=== PATIENT | female | born 1960 | race Caucasian/White ===

== ENCOUNTER 2018-01-01 19:22 | Emergency (ER) | payer BC, SELFPAY ==
[2018-01-01 19:28] VITALS: BP 151/81; PULSE 100; RESP 16; TEMP 36.4; O2SAT 100
[2018-01-01] MEDS: Sulfameth/Trimeth DS TAB 2 TAB PO (20:14)
[2018-01-01] MEDS: Cephalexin 500 MG CAP PO (20:14)
--- NOTE | 2018-01-01 20:14 | ED.GENADUL_ITS ---
Discharge Plan Disposition Patient Disposition: HOME Condition: Good Discharge Details Chief Complaint: Cellulitis Clinical Impression: Cellulitis of right breast Primary Care Provider: Denise Mejia ED Provider: Erlin Branch Home Meds and New Rx's Prescriptions: New sulfamethoxazole-trimethoprim [Bactrim DS] 800-160 mg tablet 2 tab PO BID 10 Days Qty: 40 RF: 0 cephalexin 500 mg capsule 500 mg PO QID 10 Days Qty: 40 RF: 0 Continue ibuprofen 800 MG tablet 800 mg PO TID PRNQty: 90 RF: 0 blood sugar diagnostic [Blood Glucose Test] 1 EACH strip 1 ea Miscellaneous DAILY Qty: 100 RF: 0 Nicotine [Nicoderm Cq] 1 EACH PATCH.TD24 1 ea Transdermal DAILY Qty: 1 RF: 0 glipizide 10 MG tablet extended release 24hr 10 mg PO DAILY Qty: 30 RF: 0 metformin 500 MG tablet 1,000 mg PO BID Qty: 120 RF: 5 pravastatin 20 MG tablet 20 mg PO DAILY Qty: 30 RF: 5 aspirin [Aspir-81] 81 MG tablet,delayed release (DR/EC) 81 mg PO DAILY Qty: 90 RF: 5 trazodone 50 MG tablet 50 mg PO as directed Qty: 180 RF: 0 Discharge Instructions Instructions: Cellulitis (ED) Additional Instructions: you should be contacted with an appointment with general surgery if you have severe pain or high fevers return to the emergency department Discharge Data Discharge Physician: Erlin Branch Medical Decision Making 57 yo female with hx of t2dm and hld though doesn't take her meds, comes in with redness of the right breast and had a boil per pt which started draining tonight. No fevers or severe pain. Has appearance of mastitis with small absecses that is already draining and no further fluctuance on exam so do not feel additional i and d going to be beneficial. NO fevers or crepitus and appears well so doubt sepsis or nec fasc at htis time. Will start on abx and have her f/u with general surgery this week for recheck and return precautions given Differential Diagnosis cellulitis, abscess, mastitis HPI General Mode of arrival: ambulatory . Date/Time Provider Initiated Documentation: 01/01/18 19:53 . Limitations to Documentation: no limitations . Information obtained by: patient . History of Present Illness 57 year old F presents to the emergency department with the chief complaint of right breast redness, described as moderate, with intensity rated at 4. Quality is described as burning, Patient started experiencing this day(s) (2) and it has been constant. No relieving factors improve symptom(s), No exacerbating factors reported . Patient notes no other symptoms.. Related Data Home Medications Medication Instructions Recorded Confirmed ibuprofen 800 mg PO TID PRN #90 tab-cap 11/17/16 01/01/18 blood sugar diagnostic [Blood #100 strip 11/23/16 Glucose Test] glipizide 10 mg PO DAILY #30 tab-cap 12/30/16 aspirin [Aspir-81] 81 mg PO DAILY #90 tab-cap 01/03/17 metformin 1,000 mg PO BID #120 tab-cap 17 01/01/18 pravastatin 20 mg PO DAILY #30 tab-cap 17 01/01/18 trazodone 50 mg PO as directed #180 tab-cap 03/29/17 01/01/18 cephalexin 500 mg PO QID 10 Days #40 cap 01/01/18 sulfamethoxazole-trimethoprim 2 tab PO BID 10 Days #40 tab 01/01/18 [Bactrim DS] Previous Rx's Medication Instructions Recorded glipizide 10 mg PO DAILY #30 tab-cap 12/30/16 aspirin [Aspir-81] 81 mg PO DAILY #90 tab-cap 01/03/17 metformin 1,000 mg PO BID #120 tab-cap 01/03/17 pravastatin 20 mg PO DAILY #30 tab-cap 01/03/17 trazodone 50 mg PO as directed #180 tab-cap 03/29/17 cephalexin 500 mg PO QID 10 Days #40 cap 01/01/18 sulfamethoxazole-trimethoprim 2 tab PO BID 10 Days #40 tab 01/01/18 [Bactrim DS] Allergies Allergy/AdvReac Type Severity Reaction Status Date / Time No Known Allergies Allergy Unverified 01/01/18 19:33 General Stated Complaint: Cellulitis ELY: 3 Review of Systems Review of Systems All systems reviewed & are unremarkable except as noted in HPI and below Constitutional Denies chills, Denies fever(s) and Denies weakness Eyes Denies loss of vision ENT Denies change in voice Cardiovascular Denies chest pain and Denies dyspnea Respiratory Denies dyspnea Gastrointestinal Denies abdominal pain, Denies nausea and Denies vomiting Genitourinary Denies dysuria Musculoskeletal Denies joint swelling Neurologic Denies loss of vision and Denies weakness Psychiatric Denies depression Endocrine Denies cold intolerance and Denies heat intolerance Allergic/Immunologic Reports urticaria PFSH Family History Mother Personal history of malignant neoplasm Father Essential hypertension Medical History Depression Diabetes mellitus, type 2 Social History Smoking/Tobacco Use Status: Current every day Surgical History Cholecystectomy Ligation of fallopian tube PROCEDURES Exam Const General: no acute distress Orientation: alert HENMT Head: normal to inspection Ears: external ears normal General nose exam: external nose normal Mouth: moist mucous membranes Eyes General: appearance normal, both eyes and all related structures Neck Neck: normal visual inspection Resp Effort & Inspection: normal respiratory effort and able to speak in complete sentences Cardio Rate: regular rate Skin General skin exam: other (3x4cm erythema of right breast at the 8 oclock position relative to the nipple, with drainge from the middle from open wound) Neuro General: alert and oriented x3 Extrem General: normal to inspection Psych Mental Status: mental status grossly normal Course Vital Signs Temperature 36.4 C L 01/01/18 19:28 Pulse 100 H 01/01/18 19:28 Respiratory Rate 16 01/01/18 19:28 Blood Pressure 151/81 H 01/01/18 19:28 Pulse Oximetry 100 01/01/18 19:28 Temperature 36.4 C L 01/01/18 19:28 Temperature Source Temporal Artery Scan 01/01/18 19:28 Pulse 100 H 01/01/18 19:28 Respiratory Rate 16 01/01/18 19:28 Respiratory Effort Non-Labored 01/01/18 19:29 Blood Pressure 151/81 H 01/01/18 19:28 Blood Pressure Position Sitting 01/01/18 19:28 Pulse Oximetry 100 01/01/18 19:28 Oxygen Delivery Method Room Air 01/01/18 19:28 Oxygen Flow Rate 0 01/01/18 19:28 Pain Level 5 01/01/18 19:28
[2018-01-01 20:19] VITALS: BP 145/80; PULSE 70; RESP 18; TEMP 36.8; O2SAT 99
--- NOTE | 2018-01-02 09:36 | CMPROGNOTE_ITS ---
Care Management Progress Note 01/02- Dr. Branch requested assistance with a PCP f/u this week for breast abscess. Referral faxed to [facility] this morning.
== END 2018-01-01 20:20 | disposition home or self-care (01) ==
LOC: ER 20:29
PROVIDERS: Emergency Provider Emergency Medicine; PCP Nurse Practitioner Gerontology
DX: L03.313 Cellulitis of chest wall (principal); E11.9 Type 2 diabetes mellitus without complications; Z79.84 Long term (current) use of oral hypoglycemic drugs
CPT/HCPCS: 99283

== ENCOUNTER 2024-07-19 10:04 | Emergency (ER) | payer BC, SELFPAY ==
[2024-07-19 10:14] VITALS: BP 150/68; PULSE 89; RESP 16; TEMP 36.4; O2SAT 98
[2024-07-19 10:24] VITALS: BP 150/68; PULSE 89; RESP 16; TEMP 36.4; O2SAT 98
--- NOTE | 2024-07-19 10:53 | ED.GENADUL_ITS ---
Discharge Plan Disposition Patient Disposition: Home Condition: Stable Discharge Details Clinical Impression: Left foot infection, Hyperglycemia, Hx of medication noncompliance Primary Care Provider: Unknown,Unknown ED Provider: Samir Rae Home Meds and New Rx's Prescriptions: New sulfamethoxazole-trimethoprim 800-160 mg tablet 1 tab PO BID Qty: 19 0RF cephalexin 500 mg capsule 500 mg PO QID Qty: 39 0RF Continued ibuprofen 800 MG tablet 800 mg PO TID PRNQty: 90 Nicotine [Nicoderm Cq] 1 EACH PATCH.TD24 1 ea Transdermal DAILY Qty: 1 0RF aspirin [Aspir-81] 81 MG tablet,delayed release (DR/EC) 81 mg PO DAILY Qty: 90 5RF trazodone 50 MG tablet 50 mg PO as directed Qty: 180 0RF Rx Instructions: Take one tab at night for 2 weeks then increase to 2 tabs at night till follow up 01/01/18-has not taken in 8 months but I'm going to start! LDP metformin 500 MG tablet 1,000 mg PO BID Qty: 120 5RF Rx Instructions: 01/01/18-has not taken in 8 months but I'm going to start! LDP glipizide 10 MG tablet extended release 24hr 10 mg PO DAILY Qty: 30 0RF Rx Instructions: 01/01/18-Did not know she was supposed to be taking this. LDP No Action (DME) Blood Glucose Test 1 EACH strip 1 ea Miscellaneous DAILY Qty: 100 Rx Instructions: FOR ONE TOUCH ULTRA TEST METER. PT DOES NOT USE INSULIN. DIAGNOSIS CODE e11.65 Discharge Instructions Instructions: Type 2 diabetes, Foot Care for Diabetics, Cellulitis (Skin Infection), Adult ED, Quitting Smoking ED Additional Instructions: Please follow-up with podiatry. Please follow-up with a primary care physician. Please take full course of antibiotics as prescribed. Please stop smoking. Please take diabetes medication as prescribed. Return to the emergency department immediately for any worsening or new concerning symptoms. Referrals: Mare Daly DPM [[facility] STAFF PHYSICIAN] - HPI General Mode of arrival: ambulatory . Date/Time Provider Initiated Documentation: 07/19/24 10:37 . Limitations to Documentation: no limitations . Information obtained by: patient and family . HPI Narrative: HISTORY OF PRESENT ILLNESS 64-year-old female with diabetes presents for evaluation of potential toe infection. Accompanied by daughter. Pain in toes for 2 months, attributed to pedicure incident causing infection. Initially treated with antibiotics at ER, condition improved, but pain recurred last month, now severe and disrupting sleep. No fevers. History of smoking, no drug use or COPD. Quit smoking for 4 months, resumed at reduced rate. Willing to quit smoking to save toes. No known antibiotic allergies. Similar issue with right big toe last year, resulted in ulcer and amputation. Without insurance for 3 months, not taking diabetes medications. Recently obtained insurance, seeking diabetes medication prescription. No primary care physician. Previously on Synjardy, effectively managed blood sugar levels. A1c decreased from 10 to 7.5 in 3 months. Reduced Synjardy dosage to once daily due to low blood sugar, maintained normal levels. Taking extra metformin and resumed atorvastatin, prescribed by previous physician in [place]. Related Data Home Medications ?Medication ?Instructions ?Recorded ?Confirmed ibuprofen 800 mg tablet 800 mg PO TID PRN #90 tab-caps 11/17/16 07/19/24 blood sugar diagnostic (Blood #100 strips 11/23/16 07/19/24 Glucose Test strips) aspirin 81 mg tablet,delayed 81 mg PO DAILY #90 tab-caps 01/03/17 07/19/24 release (Aspir-) trazodone 50 mg tablet 50 mg PO as directed #180 tab-caps 03/29/17 07/19/24 cephalexin 500 mg capsule 500 mg PO QID #39 caps 07/19/24 glipizide 10 mg tablet, extended 10 mg PO DAILY #30 tab-caps 07/19/24 release 24 hr metformin 500 mg tablet 1,000 mg (2 x 500 mg) PO BID #120 07/19/24 tab-caps sulfamethoxazole 800 1 tab PO BID #19 tabs 07/19/24 mg-trimethoprim 160 mg tablet Previous Rx's ?Medication ?Instructions ?Recorded aspirin 81 mg tablet,delayed 81 mg PO DAILY #90 tab-caps 01/03/17 release (Aspir-) trazodone 50 mg tablet 50 mg PO as directed #180 tab-caps 03/29/17 cephalexin 500 mg capsule 500 mg PO QID #39 caps 07/19/24 glipizide 10 mg tablet, extended 10 mg PO DAILY #30 tab-caps 07/19/24 release 24 hr metformin 500 mg tablet 1,000 mg (2 x 500 mg) PO BID #120 07/19/24 tab-caps sulfamethoxazole 800 1 tab PO BID #19 tabs 07/19/24 mg-trimethoprim 160 mg tablet Allergies Allergy/AdvReac Type Severity Reaction Status Date / Time No Known Allergies Allergy Unverified 07/19/24 10:16 General Stated Complaint: Cellulitis ELY: 3 Review of Systems All systems reviewed & are unremarkable except as noted in HPI and below Constitutional Constitutional: Denies fever(s) Exam Narrative Exam Narrative: PHYSICAL EXAM General Appearance: Normal. Vital signs: Within normal limits. HEENT: Within normal limits. Respiratory: Diminished breath sounds bilaterally posterior auscultation. Cardiovascular: Posterior tibialis pulse 1+ on bilateral Gastrointestinal: Heart and abdomen examined. Back, Musculoskeletal: Normal. Extremities: Black discoloration to all toes on left foot, first and third toes worse. Mild redness on forefoot. Right foot normal, history of rt great toe amputation. Skin: Warm and dry, no rash. Neurological: Normal. Course Vital Signs Vital signs: Vital Signs Temperature 36.4 C L 07/19/24 10:14 Pulse 89 07/19/24 10:14 Respiratory Rate 16 07/19/24 10:14 Blood Pressure 150/68 H 07/19/24 10:14 Pulse Oximetry 98 07/19/24 10:14 Temperature 36.4 C L 07/19/24 10:24 Pulse 89 07/19/24 10:24 Respiratory Rate 16 07/19/24 10:24 Blood Pressure 150/68 H 07/19/24 10:24 Pulse Oximetry 98 07/19/24 10:24 Pain Level 10 07/19/24 10:24 Medical Decision Making ASSESSMENT AND PLAN Initial Assessment: 64-year-old female with history of diabetes presenting with potential toe infection and pain. Afebrile. Redness, pain started post-pedicure incident, now black discoloration, mild redness on left foot's toes, especially first and third. Incomplete antibiotic course previously. Concern for hyperglycemia. Plan to check glucose and A1c today. Differential Diagnosis: - toe infection - Hyperglycemia ED Course: - Blood work to assess blood sugar: Glucose elevated at 272 with no anion gap acidosis. Hemoglobin A1c is elevated at 9.5. - Plan to prescribe Bactrim and Keflex. I will provide initial dosing here in the emergency department. - Plan to restart diabetes medications - Refer to primary care physician and podiatry for follow-up - I spoke with Dr. Leyva, on-call security controls assessor, discussed ED presentation course, she will be happy to see the patient in follow-up. She recommends x-rays be obtained today. - X-ray of the left foot was reviewed and interpreted by radiology: Soft tissue swelling. No visible bony erosion. Final Assessment: Patient presents with potential toe infection and diabetes mellitus. Blood work will determine the course of treatment, including antibiotics and diabetes medication management. Clinical Impression: - Toe infection - Diabetes mellitus, poorly controlled, noncompliant, hyperglycemia - Smoking cessation - Lack of health insurance affecting medication compliance Disposition: - Follow-Up: Refer to primary care physician for diabetes management and further care. - Follow-up podiatry for foot infection. Patient Education: Advised on the importance of completing antibiotic courses and the risks associated with continued smoking. Encouraged smoking cessation to improve health outcomes. MDM Components Evaluation: - Number of Differential Diagnoses or Management Options: Potential toe infection, diabetes mellitus - Amount and Complexity of Data Reviewed: Blood work - Risk of Complication and Morbidity or Mortality: High risk due to potential infection and uncontrolled diabetes This document was written with the assistance of USHA Martinez. The patient consented to its use. Lab Data Lab results reviewed: Yes I reviewed the patient's lab results. Labs: Laboratory Tests Range/Units 07/19/24 11:52 WBC (4.4-10.8) 10^3/uL 10.31 RBC (3.93-5.22) 10^6/uL 4.73 Hgb (11.2-15.7) g/dL 14.3 Hct (36.0-46.0) % 43.3 MCV (80-95) fL 92 MCH (27.0-33.0) pg 30.2 MCHC (32.0-36.0) % 33.0 RDW (11.7-14.6) % 13.6 Plt Count (130-400) 10^3/uL 278 MPV (8.0-11.0) fL 11.1 H Immature Gran % % 0.4 Neutrophils % % 75.1 Lymphocytes % % 17.8 Monocytes % % 4.8 Eosinophils % % 1.4 Basophils % % 0.5 Nucleated RBC % (0.0-0.3) % 0.0 Absolute Neutrophils (1.2-6.7) 10^3/uL 7.74 H Absolute Lymphocytes (1.2-3.4) 10^3/uL 1.84 Absolute Monocytes (0.1-0.8) 10^3/uL 0.50 Absolute Eosinophils (0.0-0.7) 10^3/uL 0.14 Absolute Basophils (0.0-0.2) 10^3/uL 0.05 Sodium (136-145) mmol/L 143 Potassium (3.5-5.1) mmol/L 3.9 Chloride (98-107) mmol/L 104 Carbon Dioxide (21.0-32.0) mmol/L 32.8 H Anion Gap (3-11) mmol/L 6.2 BUN (7-18) mg/dL 14 Creatinine (0.55-1.02) mg/dL 0.9 Est GFR (CKD-EPI 2020) (mL/min/1.73m2) 71.39 Glucose (74-106) mg/dL 272 H Hemoglobin A1c (<5.7) % 9.5 H Calcium (8.5-10.1) mg/dL 8.9 Total Bilirubin (0.2-1.0) mg/dL 1.2 H AST (15-37) U/L 21 ALT (14-59) U/L 29 Alkaline Phosphatase (46-116) U/L 103 Total Protein (6.4-8.2) g/dL 7.6 Albumin (3.4-5.0) g/dL 3.8 Quality:SDOH Health Related Social Needs: No Data to Display PFSH All Active Problems (Updated 07/19/24 @ 13:16 by Samir Rae MD) Hx of medication noncompliance (Acute) Hyperglycemia (Acute) Left foot infection (Acute) Type II diabetes mellitus, uncontrolled (Acute) Postmenopausal bleeding (Acute 06/05/12) Neck pain (Acute 10/25/14) +MRI c spine: C5-C6-C7 central disc herniation/osteophyte causing cord co mpression. Consult neuroSurg: suggest : anterior cervical discectomy with alograft fusion and anterior arthrodesis Mood disorder (Acute 11/17/16) Family history of neoplasm of female genital organ (Acute 06/05/12) Medical History (Updated 07/19/24 @ 13:16 by Samir Rae MD) Depression Diabetes mellitus, type 2 Surgical History (Updated 01/04/18 @ 14:36 by [place]) Ligation of fallopian tube PROCEDURES NEGATIVE STRESS TEST 01/19/17 Cholecystectomy Family History Mother Personal history of malignant neoplasm Endometrial CA , Lung CA Father Essential hypertension Social History (Updated 01/19/18 @ 12:09 by Latrice Weathers) Smoking/Tobacco Use Status: Former Tobacco Use Quit Date: 12/18/16 Smoking risk assessment performed?: Yes Drug use: Never Substance use type: does not use Do you feel safe in your relationship?: Yes
--- NOTE | 2024-07-19 10:58 | ED.GENADUL_ITS ---
Discharge Plan Discharge Details Chief Complaint: Cellulitis Primary Care Provider: Unknown,Unknown ED Provider: Samir Rae Home Meds and New Rx's Prescriptions: No Action ibuprofen 800 MG tablet 800 mg PO TID PRNQty: 90 (DME) Blood Glucose Test 1 EACH strip 1 ea Miscellaneous DAILY Qty: 100 Rx Instructions: FOR ONE TOUCH ULTRA TEST METER. PT DOES NOT USE INSULIN. DIAGNOSIS CODE e11.65 Nicotine [Nicoderm Cq] 1 EACH PATCH.TD24 1 ea Transdermal DAILY Qty: 1 0RF glipizide 10 MG tablet extended release 24hr 10 mg PO DAILY Qty: 30 0RF Patient Comments: 01/14/[id number] taking--to check with pcp tosee if she should be taking Rx Instructions: 01/01/18-Did not know she was supposed to be taking this. LDP metformin 500 MG tablet 1,000 mg PO BID Qty: 120 5RF Rx Instructions: 01/01/18-has not taken in 8 months but I'm going to start! LDP aspirin [Aspir-81] 81 MG tablet,delayed release (DR/EC) 81 mg PO DAILY Qty: 90 5RF trazodone 50 MG tablet 50 mg PO as directed Qty: 180 0RF Rx Instructions: Take one tab at night for 2 weeks then increase to 2 tabs at night till follow up 01/01/18-has not taken in 8 months but I'm going to start! LDP HPI General Date/Time Provider Initiated Documentation: 07/19/24 10:37 . HPI Narrative: [] is a [] year old [] who presents to the emergency department today for evaluation of []. Past medical history is significant for [] Physical exam D/dx includes but is not limited to: I independently interpreted the following tests: While in the emergency department, [] received Reviewed discharge instructions with patient, including symptomatic management and red flags indicating need for return to emergency care Related Data Home Medications ?Medication ?Instructions ?Recorded ?Confirmed ibuprofen 800 mg tablet 800 mg PO TID PRN #90 tab-caps 11/17/16 07/19/24 blood sugar diagnostic (Blood #100 strips 11/23/16 07/19/24 Glucose Test strips) glipizide 10 mg tablet, extended 10 mg PO DAILY #30 tab-caps 12/30/16 07/19/24 release 24 hr aspirin 81 mg tablet,delayed 81 mg PO DAILY #90 tab-caps 01/03/17 07/19/24 release (Aspir-) metformin 500 mg tablet 1,000 mg (2 x 500 mg) PO BID #120 01/03/17 07/19/24 tab-caps trazodone 50 mg tablet 50 mg PO as directed #180 tab-caps 03/29/17 07/19/24 Previous Rx's ?Medication ?Instructions ?Recorded glipizide 10 mg tablet, extended 10 mg PO DAILY #30 tab-caps 12/30/16 release 24 hr aspirin 81 mg tablet,delayed 81 mg PO DAILY #90 tab-caps 01/03/17 release (Aspir-) metformin 500 mg tablet 1,000 mg (2 x 500 mg) PO BID #120 01/03/17 tab-caps trazodone 50 mg tablet 50 mg PO as directed #180 tab-caps 03/29/17 Allergies Allergy/AdvReac Type Severity Reaction Status Date / Time No Known Allergies Allergy Unverified 07/19/24 10:16 General Stated Complaint: Cellulitis ELY: 3 Course Vital Signs Vital signs: Vital Signs Temperature 36.4 C L 07/19/24 10:14 Pulse 89 07/19/24 10:14 Respiratory Rate 16 07/19/24 10:14 Blood Pressure 150/68 H 07/19/24 10:14 Pulse Oximetry 98 07/19/24 10:14 Temperature 36.4 C L 07/19/24 10:24 Pulse 89 07/19/24 10:24 Respiratory Rate 16 07/19/24 10:24 Blood Pressure 150/68 H 07/19/24 10:24 Pulse Oximetry 98 07/19/24 10:24 Pain Level 10 07/19/24 10:24 Medical Decision Making Quality:SDOH Health Related Social Needs: No Data to Display PFSH All Active Problems (Updated 01/16/18 @ 11:50 by Tho Castillo) Type II diabetes mellitus, uncontrolled (Acute) Postmenopausal bleeding (Acute 06/05/12) Neck pain (Acute 10/25/14) +MRI c spine: C5-C6-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 Consult neuroSurg: suggest : anterior cervical discectomy with alograft fusion and anterior arthrodesis Mood disorder (Acute 11/17/16) Family history of neoplasm of female genital organ (Acute 06/05/12) Medical History (Updated 01/16/18 @ 11:50 by Tho Castillo) Depression Diabetes mellitus, type 2 Surgical History (Updated 01/04/18 @ 14:36 by Jaco Solarsi) Ligation of fallopian tube PROCEDURES NEGATIVE STRESS TEST 01/19/17 Cholecystectomy Family History Mother Personal history of malignant neoplasm Endometrial CA , Lung CA Father Essential hypertension Social History (Updated 01/19/18 @ 12:09 by Latrice Weathers) Smoking/Tobacco Use Status: Former Tobacco Use Quit Date: 12/18/16 Smoking risk assessment performed?: Yes Drug use: Never Substance use type: does not use Do you feel safe in your relationship?: Yes
[2024-07-19 11:43] VITALS: BP 173/51; PULSE 85; RESP 18; O2SAT 95
[2024-07-19 12:03] LABS: Abs Immature Grans 0.04 10^3/uL (0.0-0.06); Absolute Basophil Count 0.05 10^3/uL (0.0-0.2); Absolute Eosinophil Count 0.14 10^3/uL (0.0-0.7); Absolute Lymphocyte Count 1.84 10^3/uL (1.2-3.4); Absolute Neutrophil Count 7.74 10^3/uL (1.2-6.7); Basophils % 0.5 %; Eosinophils % 1.4 %; HCT 43.3 % (36.0-46.0); HGB 14.3 g/dL (11.2-15.7); Immature Grans % 0.4 %; Lymphocytes % 17.8 %; MCH 30.2 pg (27.0-33.0); MCV 92 fL (80-95); MPV 11.1 fL (8.0-11.0); Monocytes % 4.8 %; Neutrophils % 75.1 %; Platelet Count 278 10^3/uL (130-400); RBC 4.73 10^6/uL (3.93-5.22); RDW 13.6 % (11.7-14.6); RDW-SD 46.2 fL; WBC 10.31 10^3/uL (4.4-10.8)
[2024-07-19 12:25] LABS: Hemoglobin A1C 9.5 % (<5.7)
[2024-07-19 12:30] LABS: ALT 29 U/L (14-59); AST 21 U/L (15-37); Albumin 3.8 g/dL (3.4-5.0); Alkaline Phosphatase 103 U/L (46-116); Anion Gap 6.2 mmol/L (3-11); BUN 14 mg/dL (7-18); Bilirubin, Total 1.2 mg/dL (0.2-1.0); CO2 32.8 mmol/L (21.0-32.0); CREATININE 0.9 mg/dL (0.55-1.02); Calcium 8.9 mg/dL (8.5-10.1); Chloride 104 mmol/L (98-107); Estimated GFR 71.39 (mL/min/1.73m2); Glucose 272 mg/dL (74-106); Potassium 3.9 mmol/L (3.5-5.1); Sodium 143 mmol/L (136-145); Total Protein 7.6 g/dL (6.4-8.2)
--- NOTE | 2024-07-19 13:15 | DI.RAD_ITS ---
Exam(s) XR FOOT LT COMPLETE EXAM: XR FOOT LT COMPLETE CLINICAL HISTORY: infection, pain. TECHNIQUE: 2D digital imaging was performed. Three views. COMPARISON: No exams were available for comparison FINDINGS: BONES: No acute fracture is present. No bony destructive lesion is seen. Heel spurs. JOINTS: No dislocation present. Mild degenerative changes. SOFT TISSUE: Lateral soft tissue swelling. No abnormal gas collection or foreign body. IMPRESSION: Soft tissue swelling. No visible bony erosion. DATA REPOSITORY: RADIATION DOSE DELIVERED:
[2024-07-19] MEDS: Ketorolac 15 MG/ML VIAL IVP (13:36)
[2024-07-19] MEDS: Normal Saline Flush 10 ML SYR IVP (13:37)
[2024-07-19] MEDS: Cephalexin 500 MG CAP PO (13:37)
[2024-07-19] MEDS: Sulfameth/Trimeth DS TAB 1 TAB PO (13:37)
[2024-07-19] MEDS: Acetaminophen 325 MG TAB 650 MG PO (13:37)
[2024-07-19 13:45] VITALS: BP 165/45; PULSE 86; O2SAT 95
[2024-07-19 15:06] VITALS: BP 162/77; PULSE 88; RESP 18; O2SAT 98
== END 2024-07-19 15:06 | disposition home or self-care (01) ==
PROVIDERS: Emergency Provider Student in an Organized Health Care Education/Training Program
DX: E11.65 Type 2 diabetes mellitus with hyperglycemia (principal); L08.89 Other specified local infections of the skin and subcutaneous tissue; F32.A Depression, unspecified; Z89.411 Acquired absence of right great toe; Z79.82 Long term (current) use of aspirin; Z79.84 Long term (current) use of oral hypoglycemic drugs; Z87.891 Personal history of nicotine dependence
CPT/HCPCS: 36415; 80053; 96374; 99284; 73630; 83036; 85025; J1885

== ENCOUNTER 2024-10-01 07:14 | Emergency (ER) | payer BC, SELFPAY ==
[2024-10-01 07:37] VITALS: BP 125/42; PULSE 78; RESP 15; TEMP 36.1; O2SAT 96
--- NOTE | 2024-10-01 07:43 | W.ED.GENAD ---
Discharge Plan Disposition Patient Disposition: Home Discharge Details Clinical Impression: Closed fracture of proximal end of right humerus, Hematoma of right parietal scalp Primary Care Provider: Juan Zhang ED Provider: Osei Robert [place] Meds and New Rx's Prescriptions: New ondansetron 4 mg tablet,disintegrating 4 mg PO BID 5 Days Qty: 10 0RF oxycodone 5 mg tablet 5 mg PO Q8H PRNQty: 9 0RF Continued trazodone 50 mg tablet 50 mg PO as directed Qty: 180 0RF Rx Instructions: Take one tab at night for 2 weeks then increase to 2 tabs at night till follow up 01/01/18-has not taken in 8 months but I'm going to start! LDP (DME) blood-glucose meter [Contour Next EZ Meter] Kit See Rx Instructions .Route Qty: 1 3RF Rx Instructions: Daily (DME) Contour Next Test Strips Strip See Rx Instructions .Route Qty: 70 3RF Rx Instructions: daily (DME) lancets [Accu-Chek Softclix Lancets] Misc See Rx Instructions .Route Qty: 100 3RF Rx Instructions: Daily ketoconazole 2 % cream 1 applic topical DAILY Qty: 120 6RF Rx Instructions: Apply to toenails once daily acetaminophen 650 mg/20.3 mL solution 650 mg PO Q6H (DME) Blood Glucose Test 1 EACH strip 1 ea Miscellaneous DAILY Qty: 100 Rx Instructions: FOR ONE TOUCH ULTRA TEST METER. PT DOES NOT USE INSULIN. DIAGNOSIS CODE e11.65 Nicotine [Nicoderm Cq] 1 EACH PATCH.TD24 1 ea Transdermal DAILY Qty: 1 0RF glipizide 10 mg tablet extended release 24hr 10 mg PO DAILY Qty: 90 3RF aspirin 81 mg tablet,delayed release (DR/EC) 81 mg PO DAILY Qty: 90 5RF Ozempic 0.25 mg or 0.5 mg (2 mg/3 mL) pen injector 0.5 mg subcut QWEEK Qty: 3 0RF Rx Instructions: for 4 weeks atorvastatin 40 mg tablet 40 mg PO QPM Qty: 90 3RF clopidogrel [Plavix] 75 mg tablet 75 mg PO DAILY Qty: 90 3RF Jardiance 10 mg tablet 10 mg PO DAILY Qty: 90 3RF gabapentin 100 mg capsule 100 mg PO QHS Qty: 90 3RF metformin 500 MG tablet 1,000 mg PO BID Qty: 120 5RF Rx Instructions: 01/01/18-has not taken in 8 months but I'm going to start! LDP Discharge Instructions Instructions: Upper Arm Fracture Additional Instructions: You were seen in the emergency department for your arm pain. You are x-ray showed you have a fracture of your proximal humerus which will likely require operative repair. Please call orthopedic team for follow-up. As we discussed, please return to the emergency department if you develop any numbness tingling in the right hand if you develop any color changes in your head or if you have any other concerns. Your CAT scan showed no sign of any bleeding in your head. For your pain please take medications as follows: 1. Take acetaminophen (Tylenol), 1,000 mg (two 500 mg tabs) every 6 hours Please take these additional medications for pain. Please do not drive or drink alcohol particularly stronger medications. Referrals: [facility] [Provider Group] HPI General Date/Time Provider Initiated Documentation: 10/01/24 07:34. HPI Narrative: MDM Primary survey intact. Reassuring shock index. On secondary survey patient has tenderness to her proximal right nondominant humerus concerning for the possibility of fracture for which patient will undergo plain films. Given fall will obtain two-view chest x-ray. I am not suspicious for shoulder dislocation based on exam. No midline cervical spinal tenderness to suggest cervical spinal fracture. Patient does have right-sided temporal tenderness. Given clopidogrel use will obtain CT head. Given distracting injury will also obtain CT cervical spine. No preceding chest pain to suggest ACS. No shortness of breath to suggest PE. No preceding syncope to suggest GI bleed. Given the syncope my suspicion for dysrhythmia was low so I did not feel patient required a twelve-lead ECG. 1:[address] Booker who reviewed patient's x-ray and advised scan of her right upper extremity as she will CT require operative repair. I ordered labs in the event the patient required hospitalization. Her labs are reassuring. I discharged her with outpatient orthopedic follow-up per recommendation from Dr. Booker. Patient has a sling will be nonweightbearing on her right upper extremity. She does have nausea with opiates however given her clopidogrel use cannot provide her with ibuprofen. Will write her for short course of opiates and provide her with ondansetron as needed for pain. We discussed that she should return if she developed any color changes in her hand any weakness or any unmanageable pain.Patient only had 1 opiate prescription in her PDMP. Her repeat CT scan was reassuring against any intracranial hemorrhage. HPI This is a patient with a history of toe amputation presenting with a fall. The patient fell down the stairs approximately 45 minutes prior to arrival. The fall occurred due to poor visibility and instability related to the loss of her big toe on her right foot. She was descending a flight of stairs with four steps remaining when she fell, landing on her right shoulder. The patient is left-handed and reports no head injury or loss of consciousness. However, she experienced immediate vomiting post-fall. She is not experiencing shortness of breath or abdominal pain. The pain, initially localized to her shoulder, has since radiated to her back and neck, and she reports it is progressively worsening. The patient is currently on blood thinners and aspirin. Exam General: Well-appearing in no acute distress speaking in complete sentences. Head: Normocephalic, atraumatic. Eye: Extraocular eye movements intact. No conjunctival injection. No scleral icterus. Ear, nose, mouth, throat: Grossly normal inspection. Normal voice, handling secretions normally. No hemotympanum bilaterally. Neck: Trachea midline. No midline cervical spinal tenderness Cardiovascular: Well-perfused distal extremities. Regular rate rhythm Respiratory: Nonlabored respiration. Clear breath sounds bilaterally. Gastrointestinal: Nondistended abdomen. Musculoskeletal: Proximal right arm tenderness. No obvious shoulder dislocation. Patient is healing skin tear to right hand which she reports predates injury. Right hand warm well-perfused intact sensation motor function across radial, median, ulnar nerve distributions. 2+ right radial pulse. Cap refill 2 seconds in right fingertips. Left upper extremity nontender full range of motion Bilateral lower extremities nontender range of motion intact. Skin: Normal for age and race, grossly normal temperature and turgor. No acute rash. Neurologic: Alert and appropriate, no apparent acute deficits. GCS 15. Psychiatric: Mood and manner are appropriate. Grooming and personal hygiene are appropriate. Related Data Home Medications ?Medication ?Instructions ?Recorded ?Confirmed blood sugar diagnostic (Blood #100 strips 11/23/16 10/01/24 Glucose Test strips) metformin 500 mg tablet 1,000 mg (2 x 500 mg) PO BID #120 07/19/24 10/01/24 tab-caps blood sugar diagnostic (Contour #70 ea 07/23/24 10/01/24 Next Test Strips) blood-glucose meter (Contour Next #1 ea 07/23/24 10/01/24 EZ Meter kit) lancets (Accu-Chek Softclix #100 ea 07/23/24 10/01/24 Lancets) trazodone 50 mg tablet 50 mg PO as directed #180 tab-caps 07/23/24 10/01/24 ketoconazole 2 % topical cream 1 applic topical DAILY #120 grams 07/24/24 07/30/24 acetaminophen 650 mg/20.3 mL oral 650 mg PO Q6H 07/26/24 07/30/24 solution glipizide 10 mg tablet, extended 10 mg PO DAILY #90 tab-caps 08/23/24 10/01/24 release 24 hr aspirin 81 mg tablet,delayed 81 mg PO DAILY #90 tab-caps 09/25/24 10/01/24 release semaglutide 0.25 mg or 0.5 mg (2 0.5 mg (0.736 mL) subcut QWEEK #3 09/25/24 10/01/24 mg/3 mL) subcutaneous pen injector mL (Ozempic) atorvastatin 40 mg tablet 40 mg PO QPM #90 tabs 09/26/24 10/01/24 clopidogrel 75 mg tablet (Plavix) 75 mg PO DAILY #90 tabs 09/26/24 10/01/24 empagliflozin 10 mg tablet 10 mg PO DAILY #90 tabs 09/26/24 10/01/24 (Jardiance) gabapentin 100 mg capsule 100 mg PO QHS #90 caps 09/28/24 10/01/24 ondansetron 4 mg disintegrating 4 mg PO BID 5 days #10 tabs 10/01/24 tablet oxycodone 5 mg tablet 5 mg PO Q8H PRN #9 tabs 10/01/24 Previous Rx's ?Medication ?Instructions ?Recorded metformin 500 mg tablet 1,000 mg (2 x 500 mg) PO BID #120 07/19/24 tab-caps blood sugar diagnostic (Contour #70 ea 07/23/24 Next Test Strips) blood-glucose meter (Contour Next #1 ea 07/23/24 EZ Meter kit) lancets (Accu-Chek Softclix #100 ea 07/23/24 Lancets) trazodone 50 mg tablet 50 mg PO as directed #180 tab-caps 07/23/24 ketoconazole 2 % topical cream 1 applic topical DAILY #120 grams 07/24/24 glipizide 10 mg tablet, extended 10 mg PO DAILY #90 tab-caps 08/23/24 release 24 hr aspirin 81 mg tablet,delayed 81 mg PO DAILY #90 tab-caps 09/25/24 release semaglutide 0.25 mg or 0.5 mg (2 0.5 mg (0.736 mL) subcut QWEEK #3 09/25/24 mg/3 mL) subcutaneous pen injector mL (Ozempic) atorvastatin 40 mg tablet 40 mg PO QPM #90 tabs 09/26/24 clopidogrel 75 mg tablet (Plavix) 75 mg PO DAILY #90 tabs 09/26/24 empagliflozin 10 mg tablet 10 mg PO DAILY #90 tabs 09/26/24 (Jardiance) gabapentin 100 mg capsule 100 mg PO QHS #90 caps 09/28/24 ondansetron 4 mg disintegrating 4 mg PO BID 5 days #10 tabs 10/01/24 tablet oxycodone 5 mg tablet 5 mg PO Q8H PRN #9 tabs 10/01/24 Allergies Allergy/AdvReac Type Severity Reaction Status Date / Time oxycodone AdvReac Severe Nausea Verified 10/01/24 07:41 General Stated Complaint: Orthopedic ELY: 3 Course Vital Signs Vital signs: Vital Signs Temperature 36.1 C L 10/01/24 07:37 Pulse 78 10/01/24 07:37 Respiratory Rate 15 10/01/24 07:37 Blood Pressure 125/42 L 10/01/24 07:37 Pulse Oximetry 96 10/01/24 07:37 Temperature 36.1 C L 10/01/24 07:37 Temperature Source Tympanic 10/01/24 07:37 Pulse 78 10/01/24 07:37 Respiratory Rate 15 10/01/24 07:37 Blood Pressure 125/42 L 10/01/24 07:37 Blood Pressure Position Sitting 10/01/24 07:37 Pulse Oximetry 96 10/01/24 07:37 Oxygen Delivery Method Room Air 10/01/24 07:37 Oxygen Flow Rate 0 10/01/24 07:37 Pain Level 10 10/01/24 07:37 PFSH All Active Problems (Updated 10/01/24 @ 13:49 by Osei oRbert MD) Hematoma of right parietal scalp (Acute) Closed fracture of proximal end of right humerus (Acute) Intermittent claudication due to atherosclerosis of artery of extremity (Acute) Rest pain of both lower extremities due to atherosclerosis (Acute) Blue toe syndrome of left lower extremity (Acute) Right great toe amputee (Acute) PVD (peripheral vascular disease) (Chronic) PAD (peripheral artery disease) (Acute) Type II diabetes mellitus, uncontrolled (Acute) Postmenopausal bleeding (Acute 06/05/12) Neck pain (Acute 10/25/14) +MRI c spine: C5-C6-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 Consult neuroSurg: suggest : anterior cervical discectomy with alograft fusion and anterior arthrodesis Mood disorder (Acute 11/17/16) Family history of neoplasm of female genital organ (Acute 06/05/12) Medical History (Updated 10/01/24 @ 13:49 by Osei Robert MD) Depression Diabetes mellitus, type 2 Surgical History Ligation of fallopian tube PROCEDURES NEGATIVE STRESS TEST 01/19/17 Cholecystectomy Family History Mother Personal history of malignant neoplasm Endometrial CA , Lung CA Father Essential hypertension Social History Smoking/Tobacco Use Status: Former Tobacco Use Quit Date: 12/18/16 Smoking risk assessment performed?: Yes Alcohol Intake: never Drug use: Never Substance use type: does not use Do you feel safe in your relationship?: Yes
--- NOTE | 2024-10-01 07:45 | DI.RAD_ITS ---
Exam(s) XR HUMERUS RT XR SHOULDER RT COMPLETE 2+V EXAM: XR SHOULDER RT COMPLETE 2+V and XR humerus RT CLINICAL HISTORY: Right shoulder pain. TECHNIQUE: 2D digital imaging was performed of the right humerus and shoulder. Six images were obtained. AP, lateral, Grashey and Y views were obtained. COMPARISON: CR XR HUMERUS RT from 10/01/2024 FINDINGS: BONES: There is an acute comminuted fracture involving the proximal humerus. The fracture involves the surgical neck and the greater tuberosity. No bony destructive lesion is seen. There is anterior cervical disc fusion in the lower cervical spine. JOINTS: There is mild inferior subluxation of the humeral head relative to the glenoid. Degenerative changes are seen at the acromioclavicular joint. SOFT TISSUE: Normal. IMPRESSION: Comminuted mildly displaced fracture involving the proximal right humerus. Mild inferior subluxation of the humeral head relative to the glenoid. DATA REPOSITORY: RADIATION DOSE DELIVERED:
--- NOTE | 2024-10-01 07:45 | DI.RAD_ITS ---
Exam(s) XR CHEST 2V PA LATERAL EXAM: XR CHEST 2V PA LATERAL CLINICAL HISTORY: History of falling TECHNIQUE: 2D digital imaging was performed of the chest. Two images were obtained. PA and lateral views were obtained. COMPARISON: CR CHEST 2 VIEWS PA,LAT from 11/21/2014 FINDINGS: MEDIASTINUM: Normal. HEART: Normal. PULMONARY VASCULATURE: Normal. LUNGS: There is a small infiltrate in the right lung base above the diaphragm. There is atelectasis or scarring in the left mid lung. PLEURAL SPACE: No pleural effusion or pneumothorax. BONE:Within normal limits for the patient's age. The right humeral head fractures described on the x-ray of the shoulder and humerus. There is anterior cervical fusion in the lower cervical spine. OTHER FINDINGS:Normal. IMPRESSION: 1. Right basilar infiltrate. This may represent atelectasis or pneumonia. Please correlate clinically. 2. The right humeral fracture is described on the x-ray of the right shoulder and humerus. DATA REPOSITORY: RADIATION DOSE DELIVERED:
--- NOTE | 2024-10-01 07:45 | DI.CT_ITS ---
Exam(s) CT HEAD CERVICAL SPINE WO EXAM: CT HEAD CERVICAL SPINE WO CLINICAL HISTORY: Head strike right-sided pain distracting injury. TECHNIQUE: Imaging Protocol: Axial computed tomography images with coronal and sagittal reformatted images were created and reviewed COMPARISON: No exams were available for comparison FINDINGS: CT Head: Ventricles and Extra axial spaces: Normal in size and morphology for the patient's age. Hemorrhage: There are 2 questionable areas of hyper density in the subarachnoid space (series 4, image 25 in the right parietal lobe) and (series 4, image 17 in the left parietal lobe). This may be artifactual. Cerebral parenchyma: There are areas of decreased attenuation in the white matter consistent with chronic microvascular ischemic disease. There is no evidence of an acute territorial infarct or acute mass effect. Midline shift: None. Brainstem/Cerebellum: Normal. Calvarium: Normal. Visualized Paranasal sinuses/Mastoids: Clear. Soft Tissues: There is a small right scalp hematoma overlying the right parietal bone. CT Cervical Spine: Bones: No acute fracture or subluxation. Anterior cervical fusion at C5 through C7. Age-appropriate degenerative changes are present. Soft Tissues: Unremarkable. Lung Apices: Clear. IMPRESSION: 1. Two questionable areas of hyperdensity in each of the parietal lobes. This may represent artifact versus small subarachnoid hemorrhages. A follow-up examination in 3-4 hours is recommended for re-evaluation. 2. Right parietal scalp hematoma. 3. No acute fracture or subluxation in the cervical spine. 4. Findings were discussed with Dr. Robert at 9:15 a.m. on 10/01/2024. RADIATION DOSE DELIVERED: 1,201.89mGy.cm Total DLP DATA REPOSITORY: All CT scans at this facility are submitted to the National Radiology Data Registry (NRDR) Dose Index Registry (DIR) with the [employer] ([employer]). RADIATION OPTIMIZATION: All CT scans at this facility use at least one of these dose optimization techniques: automated exposure control; mA and/or kV adjustment per patient size (includes targeted exams where dose is matched to clinical indication); or iterative reconstruction.
[2024-10-01] MEDS: Acetaminophen 500 MG TAB 1000 MG PO (10:10)
--- NOTE | 2024-10-01 11:00 | DI.CT_ITS ---
Exam(s) CT HEAD WO EXAM: CT HEAD WO CLINICAL HISTORY: ? Bleed. TECHNIQUE: Imaging Protocol: Axial computed tomography images with coronal and sagittal reformatted images were created and reviewed COMPARISON: CT CT HEAD CERVICAL SPINE WO from 10/01/2024 FINDINGS: Ventricles and Extra axial spaces: Normal in size and morphology for the patient's age. Hemorrhage: None. Cerebral parenchyma: There are areas of decreased attenuation in the white matter consistent with chronic microvascular ischemic disease. No acute mass effect is identified. No findings to suggest an acute territorial infarct are seen. Midline shift: None. Brainstem/Cerebellum: Normal. Calvarium: Normal. Visualized Paranasal sinuses/Mastoids: Clear. Soft Tissues: There is again seen a right scalp hematoma overlying the right parietal bone. IMPRESSION: 1. No acute intracranial process. 2. Small scalp hematoma overlying the right parietal bone. RADIATION DOSE DELIVERED: 874.93mGy.cm Total DLP DATA REPOSITORY: All CT scans at this facility are submitted to the National Radiology Data Registry (NRDR) Dose Index Registry (DIR) with the [employer] ([employer]). RADIATION OPTIMIZATION: All CT scans at this facility use at least one of these dose optimization techniques: automated exposure control; mA and/or kV adjustment per patient size (includes targeted exams where dose is matched to clinical indication); or iterative reconstruction.
--- NOTE | 2024-10-01 11:00 | DI.CT_ITS ---
Exam(s) CT UPPER EXTREMITY RT WO EXAM: CT UPPER EXTREMITY RT WO CLINICAL HISTORY: Right proximal humerus fracture. TECHNIQUE: Imaging Protocol: Axial computed tomography images with coronal and sagittal reformatted images were created and reviewed. COMPARISON: CR XR HUMERUS RT from 10/01/2024 CR XR SHOULDER RT COMPLETE 2+V from 10/01/2024 FINDINGS: Bones: There is an acute comminuted fracture of the proximal humerus. There is a comminuted displaced component of the greater tuberosity. There is mild impaction of the fracture medially. The humeral head appears seated within the glenoid fossa. There are degenerative changes seen at the acromioclavicular and glenohumeral joints. No cellulitic or osteomyelitic changes are identified. No lytic or sclerotic lesions are identified. Soft Tissues: There is infiltration seen in the soft tissues around the fracture. The thyroid gland is enlarged, left greater than right. Calcifications are seen within the thyroid gland. No large thyroid nodules are seen. The visualized lungs are clear. IMPRESSION: Comminuted, displaced and impacted fracture involving the proximal humerus as described. RADIATION DOSE DELIVERED: 559.58mGy.cm Total DLP 559.58mGy.cm Total DLP DATA REPOSITORY: All CT scans at this facility are submitted to the National Radiology Data Registry (NRDR) Dose Index Registry (DIR) with the [employer] (ACR). RADIATION OPTIMIZATION: All CT scans at this facility use at least one of these dose optimization techniques: automated exposure control; mA and/or kV adjustment per patient size (includes targeted exams where dose is matched to clinical indication); or iterative reconstruction.
[2024-10-01 12:04] LABS: Abs Immature Grans 0.10 10^3/uL (0.0-0.06); HCT 44.4 % (36.0-46.0); HGB 14.8 g/dL (11.2-15.7); Immature Grans % 0.5 %; MCH 30.5 pg (27.0-33.0); MCHC 33.3 % (32.0-36.0); MCV 91 fL (80-95); MPV 11.3 fL (8.0-11.0); Platelet Count 316 10^3/uL (130-400); RBC 4.86 10^6/uL (3.93-5.22); RDW 14.2 % (11.7-14.6); RDW-SD 48.0 fL; WBC 21.24 10^3/uL (4.4-10.8)
[2024-10-01] MEDS: Normal Saline 500 ML IV (12:25)
[2024-10-01] MEDS: Ondansetron 4 MG/2 ML VIAL IVP (12:25)
[2024-10-01] MEDS: MORPHine 4 MG/ML SYR IVP (12:25)
[2024-10-01 12:37] LABS: Anion Gap 10.7 mmol/L (3-11); BUN 18 mg/dL (7-18); CO2 26.3 mmol/L (21.0-32.0); Calcium 9.4 mg/dL (8.5-10.1); Chloride 102 mmol/L (98-107); Estimated GFR 82.23 (mL/min/1.73m2); Glucose 173 mg/dL (74-106); Potassium 4.1 mmol/L (3.5-5.1); Sodium 139 mmol/L (136-145)
[2024-10-01] MEDS: MORPHine 4 MG/ML SYR (13:59)
== END 2024-10-01 14:01 | disposition home or self-care (01) ==
PROVIDERS: Emergency Provider Emergency Medicine; PCP Nurse Practitioner Family
DX: S42.201A Unspecified fracture of upper end of right humerus, initial encounter for closed fracture (principal); S00.03XA Contusion of scalp, initial encounter; W10.8XXA Fall (on) (from) other stairs and steps, initial encounter
CPT/HCPCS: 99285; 99284; 36415; 96374; 96375; 80048; 96361; 70450; 71046; 72125; 73030; 73060; 73200; 85025; J2270; J2405